=== PATIENT | female | born 1940 | race Caucasian/White ===

== ENCOUNTER → 2017-05-02 | Outpatient (CLI) | payer MEDICARE, BC ==
[~2017-05-02] MED LIST: ASPI-482 PO; BUPIVACAINE MPF 0.5% 10 ML VIAL for KCIC. IJ ONE; CONTRAST GIVEN MC PRN; GABA-586 PO; IOHEXOL 300 MG/ML 50 ML VIAL. IART ONE; IRBE300T3 PO; LIDOCAINE 1% Multi-Dose 20 ML VIAL. ID ONE; MELO-150 PO; METO25TA9 PO; VENL75CA6 PO; methylPREDNISolone ACETATE 40 MG/ML VIAL. INT ART ONE
--- NOTE | 2017-05-02 13:27 | KCIC ---
PROCEDURE Therapeutic right hip injection using fluoroscopic guidance. HISTORY Hip pain. Pain is chronic TECHNIQUE The procedure was explained to the patient as were potential risks, including infection, bleeding or allergic reaction. All questions were answered. Informed written and verbal consent was obtained. The hip was prepped and draped in the usual sterile manner. Following administration of local anesthetic, a 22-gauge spinal needle was advanced into the hip joint without difficulty, with care taken to avoid the vascular structures. Stylet was removed and following negative aspiration, a mixture of 4 cc Omnipaque-300, 2 cc (80 mg) Depo-Medrol, 4 cc 0.5% Marcaine and 4 cc 1% lidocaine were injected without difficulty. Fluoroscopy demonstrates uniform and satisfactory distribution of the injection through the hip. The needle was removed. There was good hemostasis at the injection site. The patient left in stable condition without immediate complication. The patient was given postprocedural instructions, instructed to contact us or the emergency room if there are any complications. A single spot image was obtained. FLUOROSCOPY TIME: 43 seconds Electronically signed by: Manuel Aguiar MD (05/02/2017 1:24 PM)
== END | disposition home or self-care (01) ==
LOC: KCIC 11:02
PROVIDERS: ATTEND Family Medicine
DX: M25.551 Pain in right hip (principal); G89.29 Other chronic pain
CPT/HCPCS: 20610; 77002; J1030; Q9967

== ENCOUNTER → 2017-06-04 | Outpatient (CLI) | payer MEDICARE, BC ==
[~2017-06-04] MED LIST changes: -BUPIVACAINE MPF 0.5% 10 ML VIAL for KCIC. IJ ONE; -CONTRAST GIVEN MC PRN; -IOHEXOL 300 MG/ML 50 ML VIAL. IART ONE; -LIDOCAINE 1% Multi-Dose 20 ML VIAL. ID ONE; -MELO-150 PO; +MELO15TA23 PO; -methylPREDNISolone ACETATE 40 MG/ML VIAL. INT ART ONE
--- NOTE | 2017-06-04 17:02 | KCIC ---
Examination: MRI of the right hip without contrast HISTORY: History of right hip pain COMPARISON: None available TECHNIQUE: Multiplanar, multisequence MR imaging of the right hip was performed without contrast. Findings: The right femoral head is within the acetabulum. There is moderate to severe joint space loss identified in the right hip joint with deep fissuring of the cartilage. Small hip joint effusion is identified. There is increased signal identified in the anterosuperior labrum likely tear of the labrum with a multiloculated cystic structure measuring 4.3 cm in AP dimension and 1.1 cm in transverse dimension likely large paralabral cyst extending from anterior to posterior superior to the labrum. The attachment of the hamstring tendons to the ischial tuberosity grossly appears intact. The attachment of the iliopsoas tendon to a lesser trochanter grossly appears intact. The attachment of the gluteal tendons to the greater trochanter grossly appears intact. The visualized bowel appears unremarkable. Mild trabecular edema identified in the lateral femoral head probably bone marrow reactive changes or due to degeneration. IMPRESSION: 1. Tear of the anterosuperior labrum with a large paralabral cyst. 2. Moderate to severe degenerative changes right hip joint with mild trabecular edema in the lateral femoral head. 3. Deep fissuring of cartilage identified in the right hip joint likely secondary to degeneration. Electronically signed by: Navin Chauhan MD (06/04/2017 4:59 PM) [id number]
== END | disposition home or self-care (01) ==
LOC: KCIC MRI 15:58
PROVIDERS: ATTEND Orthopaedic Surgery
DX: M16.11 Unilateral primary osteoarthritis, right hip (principal)
CPT/HCPCS: 73721

== ENCOUNTER → 2017-07-22 | Outpatient (CLI) | payer MEDICARE, BC ==
[~2017-07-22] MED LIST changes: +LANS30CA PO; +RANI150T2 PO
[2017-07-22 08:48] LABS: BASO % 1 % (0-3); EOS % 5 % (0-3); HEMATOCRIT 36.7 % (36.0-47.0); LYMPH # 1.5 x10^3/uL (1.0-4.8); LYMPH % 35 % (24-48); MEAN CORPUSCULAR HEMOGLOBIN 26 pg (25-35); MEAN CORPUSCULAR HGB CONC 33 g/dL (31-37); MEAN CORPUSCULAR VOLUME 80 fL (79-100); MONO % 9 % (0-9); NEUT % 51 % (31-73); PLATELET COUNT 239 x10^3/uL (140-400); RED BLOOD COUNT 4.59 x10^6/uL (3.50-5.40); RED CELL DISTRIBUTION WIDTH 16.5 % (11.5-14.5); WHITE BLOOD COUNT 4.2 x10^3/uL (4.0-11.0)
[2017-07-22 08:57] LABS: INR 1.1 (0.8-1.1); PROTHROMBIN TIME PATIENT 13.5 SEC (11.7-14.0)
[2017-07-22 09:13] LABS: ALBUMIN 3.5 g/dL (3.4-5.0); CALCIUM 8.7 mg/dL (8.5-10.1); CREATININE 0.6 mg/dL (0.6-1.0); GFR 96.9
[2017-07-22 11:16] LABS: BILIRUBIN,URINE NEGATIVE (NEG); GLUCOSE,URINE NEGATIVE (NEG); NITRITE,URINE NEGATIVE (NEG); PROTEIN,URINE NEGATIVE (NEG-TRACE); UROBILINOGEN,URINE 0.2 mg/dL (0.2 mg/dL)
[2017-07-22 11:26] LABS: SQUAMOUS EPITHELIAL CELL,UR OCC /LPF
[2017-07-22 11:27] LABS: BACTERIA,URINE FEW /HPF (0-FEW)
--- NOTE | 2017-07-22 13:03 | RAD ---
Exam performed: 2 views of the chest. Indication: HXHYPERTENSION-PREOP EVAL FOR JOINT REPLACEMENT Date of Service:07/22/2017 9:51 AM . Comparison : None available. Findings: PA and lateral radiographs of the chest reveal a normal cardiomediastinal contour. Ectatic tortuous aorta. Calcified nodule in the right lung base. The lungs are clear. No pleural fluid is seen. The visualized osseous structures are unremarkable. Impression: No acute findings seen in the 2 views chest
== END | disposition home or self-care (01) ==
LOC: SURGPAT 12:48
PROVIDERS: ATTEND Orthopaedic Surgery
DX: Z01.818 Encounter for other preprocedural examination (principal); M16.11 Unilateral primary osteoarthritis, right hip; Z96.641 Presence of right artificial hip joint
CPT/HCPCS: 36415; 71020; 80048; 81001; 82040; 85025; 85610; 85651; 85730; 87086; 87641

== ENCOUNTER 2017-08-06 06:04 | Inpatient (IN) | payer MEDICARE, BC ==
[~2017-08-06] VITALS: Ht 152.4 cm; Wt 59.9 kg
[2017-08-06] VITALS (14 sets, daily range): BP systolic 78–122; BP diastolic 40–69
[~2017-08-06 06:04] MED LIST changes: +ACETAMINOPHEN 500 MG TABLET PO PRN; +CLINDAMYCIN 600MG PREMIX 50 ML IV PRN; +CLINDAMYCIN PREMIX 600 MG/50 ML BAG. IV ONE; +METO-239 PO; -METO25TA9 PO; +MORPHINE SULFATE 5 MG, KETOROLAC 30 MG, ROPIVacaine 0.5% PF 60 ML, EPINEPHrine 0.5 MG i... INT ART ONE; +TRANEXAMIC ACID 1,000 MG in IV NS 50ML -- 1ST BAG INJ ONE
[2017-08-06] MEDS ORDERED: LIDOCAINE 1% 1 ML SYRINGE. ID PRN (07:00)
[2017-08-06] MEDS ORDERED: IV RINGERS,LACTATED 1000ML 1,000 ML IV SCH (07:00)
[2017-08-06] MEDS ORDERED: ONDANSETRON PF 4 MG/2 ML VIAL. IV PRN (07:00)
[2017-08-06] MEDS ORDERED: PROCHLORPERAZINE 10 MG/2 ML VIAL. IV PRN ×2 (07:00→07:30)
[2017-08-06] MEDS ORDERED: MORPHINE SULFATE 2 MG/ML DISP.SYRIN. IV PRN ×2 (07:00→07:30)
[2017-08-06] MEDS: MELOXICAM 7.5 MG TABLET PO PRN ×2 (07:02→13:58)
[2017-08-06 07:12] LABS: INR 1.1 (0.8-1.1); PROTHROMBIN TIME PATIENT 13.7 SEC (11.7-14.0)
[2017-08-06] MEDS ORDERED: fentaNYL PF VIAL 100 MCG/2 ML VIAL ONE (07:19)
[2017-08-06] MEDS ORDERED: DESFLURANE > 120 MINUTES IH ONE (07:19)
[2017-08-06] MEDS ORDERED: PROPOFOL 20 ML IV ONE (07:19)
[2017-08-06] MEDS ORDERED: ONDANSETRON PF 4 MG/2 ML VIAL. ONE (07:19)
[2017-08-06] MEDS ORDERED: PHENYLEPHRINE in 0.9% NACL PF 1 MG/10 ML DISP.SYRIN. IV ONE (07:19)
[2017-08-06] MEDS ORDERED: VECURONIUM BOLUS 10 MG VIAL. IV ONE (07:19)
[2017-08-06] MEDS ORDERED: LIDOCAINE 2% PF Vial for OR 5 ML VIAL. ONE (07:19)
[2017-08-06] MEDS ORDERED: DEXAMETHASONE SOD PHOS 20 MG/5 ML VIAL. ONE (07:19)
[2017-08-06] MEDS ORDERED: 0.9 % SODIUM CHLORIDE 50 ML VIAL. IJ ONE (07:22)
[2017-08-06] MEDS: IV DEXTROSE 5 %-0.45 % NACL 1,000 ML IV SCH ×2 (07:25→17:25)
[2017-08-06] MEDS ORDERED: MORPHINE SULFATE 4 MG/ML DISP.SYRIN. IV PRN (07:30)
[2017-08-06] MEDS ORDERED: ZOLPIDEM 5 MG TABLET. PO PRN (07:30)
[2017-08-06] MEDS ORDERED: CALCIUM CARBONATE 500 MG TAB.CHEW PO PRN (07:30)
[2017-08-06] MEDS ORDERED: oxyCODONE/APAP 7.5/325 1 TAB TABLET PO PRN (07:30)
[2017-08-06] MEDS ORDERED: traMADol 50 MG TABLET PO PRN ×2 (07:30)
[2017-08-06] MEDS ORDERED: fentaNYL PF VIAL 100 MCG/2 ML VIAL IV PRN ×4 (07:30→11:30)
[2017-08-06] MEDS ORDERED: diphenhydrAMINE 50 MG/ML VIAL IV PRN (07:30)
[2017-08-06] MEDS ORDERED: 0.9 % SODIUM CHLORIDE 10 ML DISP.SYRIN. IV PRN (07:30)
[2017-08-06] MEDS ORDERED: DEXTROSE 50% 25 GM / 50ML DISP.SYRIN. IV PRN (07:30)
[2017-08-06] MEDS: FERROUS SULFATE 325 MG TABLET. PO SCH ×2 (08:00→16:56)
[2017-08-06] MEDS ORDERED: TRANEXAMIC ACID 1,000 MG in IV NS 50ML -- 2ND BAG INJ ONE (08:00)
[2017-08-06] MEDS ORDERED: NEOSTIGMINE 10 MG/10 ML VIAL. ONE (09:13)
[2017-08-06] MEDS ORDERED: GLYCOPYRROLATE 1 MG/5 ML VIAL. ONE (09:13)
[2017-08-06] MEDS: HYDROmorphone 2 MG/ML VIAL IV PRN ×4 (11:05→11:37)
[2017-08-06] MEDS ORDERED: INSULIN ASPART 100 UNIT/ML 10ML VIAL. SQ ONE ×2 (11:07→13:30)
[2017-08-06] MEDS: PANTOPRAZOLE 40 MG TABLET.DR. PO SCH (11:30)
[2017-08-06] MEDS ORDERED: INSULIN ASPART 300 UNITS/3 ML INSULN.PEN SQ SCH (11:30)
--- NOTE | 2017-08-06 11:44 | RAD ---
Portable pelvis, 08/06/2017: History: Postop evaluation A right hip prosthesis has been placed. It appears to be in satisfactory position. A surgical drain overlie the operative site. Surgical clips are projected over the lower lumbar region. There is no evidence of a retained surgical instrument, needle or radiopaque sponge. IMPRESSION: No significant postoperative abnormality is detected.
[2017-08-06] MEDS: KETOROLAC TROMETHAMINE 10 MG TABLET PO SCH ×2 (12:00→18:05)
[2017-08-06] MEDS ORDERED: ALBUMIN HUMAN 5% 500 ML IV ONE (12:30)
[2017-08-06 12:52] LABS: HEMATOCRIT 32.3 % (36.0-47.0); HEMOGLOBIN 10.6 g/dL (12.0-15.5); RED BLOOD COUNT 3.84 x10^6/uL (3.50-5.40); RED CELL DISTRIBUTION WIDTH 16.6 % (11.5-14.5); WHITE BLOOD COUNT 10.9 x10^3/uL (4.0-11.0)
[2017-08-06] MEDS: VENLAFAXINE XR 37.5 MG CAP.ER.24H. PO SCH (13:00)
[2017-08-06] MEDS: LOSARTAN POTASSIUM 50 MG TABLET. PO SCH (13:00)
[2017-08-06] MEDS: MULTIVITAMIN with MINERAL TABLET. PO SCH (13:00)
[2017-08-06] MEDS: METOPROLOL SUCC 24HR ER 25 MG TAB.ER.24H. PO SCH (13:00)
[2017-08-06] MEDS: GABAPENTIN 300 MG CAPSULE. PO SCH ×2 (14:00→21:00)
[2017-08-06] MEDS: CLINDAMYCIN 600MG PREMIX 50 ML IV SCH ×2 (14:20→19:22)
--- NOTE | 2017-08-06 15:25 | PDOC4 ---
Operative Note Operative Note Date of surgery: 08/06/2017 Preoperative diagnosis: ACL and PCL tears status post knee dislocation with previous LCL reconstruction and peroneal nerve exploration and neuro lysis Postoperative diagnosis same Procedure: Right knee arthroscopy with allograft posterior cruciate ligament and anterior cruciate ligament reconstruction Surgeon: Chacho Assist: Darlyn Anesthesia: Gen. endotracheal Estimated blood loss less than 50 mL Tourniquet time: 2 hours 15 minutes Complications: None Operative indications: Patient is a 44-year-old female that sustained a knee dislocation with multiple ligament instability and a peroneal nerve motor deficit at the time of injury. She underwent subsequent lateral collateral ligament and posterior lateral corner reconstruction with exploration and neuro lysis of the peroneal nerve and continues to have sensory function distally for the peroneal nerve but no motor function has returned as of yet. I went over with her the strategy of anterior and posterior cruciate ligament reconstruction risks benefits postoperative course possible infection recurrent instability nerve or blood vessel damage medical or other anesthetic consultations among others. All her questions were answered consent was obtained and she agrees to proceed with operative evaluation and treatment Operative text: Patient was identified procedure verified patient placed in the supine position on the operating table. After adequate amounts of general endotracheal anesthesia were administered the right lower extremity was examined under anesthesia and found to have full range of motion and gross instability on anterior posterior drawer Lackman testing. The right lower extremity was placed with a thigh tourniquet and prepped and draped in standard sterile fashion. After timeout was performed patient procedure again identified and verified, the right lower extremity was exsanguinated by Esmarch bandage tourniquet inflated to 300 mmHg a lateral portal was established a medial portal established using spinal needle localization and the knee joint was systematically examined medial and lateral menisci were probed and found to be intact patellofemoral tracking was excellent with no significant chondromalacia noted in either of the 3 compartments of the knee ACL and PCL were clearly torn remnants were removed tibial tunnel of the PCL was first drilled anatomically and a Radnor-Cal reamer used to smooth the superior aspect of the tunnel. The Achilles autograft was sized at a size 9-1/2 with a 10 mm bone plug design for the femoral side. Accordingly a 9.5 mm tibial tunnel was drilled in anatomic position and a 10 mm tunnel was drilled 3 mm off the anterior cartilage surface at the anatomic PCL femoral insertion. The Radnor rasp was again used to smooth the tunnel edges bony fragments were removed from the joint and the PCL graft was placed and fixed on the femoral side with a 9 x 30 mm bioabsorbable interference screw with excellent fit and stability noted graft placement intra- articular was noted to be excellent the graft was tensioned and taken through flexion and extension cycles to eliminate any creep and tensioned at 70 of knee flexion with excellent pentecostal of the tibiofemoral step-off. Fixation carried out with a 10 x 30 mm bioabsorbable interference screw from [employer] attention was then turned to ACL reconstruction where a 9 mm allograft was prepared and whip stitched on the back table. ACL tibial tunnel was drilled at its anatomic insertion point ensuring an adequate bone bridge between the PCL tunnel. Femoral tunnel was drilled the 2 o'clock position with a 6 mm guide and adequate but minimal back wall was obtained drilling was carried out approximately 236 mm depth and cortex was breached with the 4 mm Endobutton drill bit at approximately 44 mm. A 15 mm closed loop Endobutton was then selected to achieve 29 mm in the femoral tunnel. Tunnel edges were rasped bone fragments were removed and the ACL allograft was brought into the tunnel Endobutton was flipped without difficulty the knee was taken through flexion and extension cycles to verify isometry and placement no impingement noted and the ACL was tensioned in full extension and fixation carried out with a 9 x 30 mm interference screw. Backup fixation by sewing the ACL and PCL grafts together. Excellent stability was returned to the knee thorough irrigation carried out normal saline solution incisions over the medial aspect of the tibia and femur were closed with 2-0 Vicryl suture portals closed with nylon suture sterile dressings were applied patient was placed in a hinged knee brace locked in extension and returned to recovery room in stable condition toes were noted be warm pink find deflation of the tourniquet. Please note that Valarie roy was present for the procedure assisted in the prepping draping graft preparation and closure SHYAM BOTELLO MD Aug 06, 2017 15:25
[2017-08-06] MEDS ORDERED: WARFARIN 7.5 MG TABLET. PO ONE (16:00)
--- NOTE | 2017-08-06 16:08 | PDOC4 ---
Operative Note Operative Note Date of operation: 08/06/2017 Preoperative diagnosis: Right hip DJD Postoperative diagnosis: Same Procedure: Right total hip arthroplasty anterior approach Surgeon: Chacho Assist: Darlyn Anesthesia: Gen. endotracheal Estimated blood loss: 975 mL Specimens femoral head to pathology Intraoperative transfusion 2 units packed red blood cells Complications: None Operative indications: Patient is a 77-year-old female with ongoing right hip pain unresponsive to nonoperative management and severe degenerative joint changes on x-ray. I gone over with her risks benefits postoperative course of possible operative treatment including the possibility of leg length discrepancy nerve or blood vessel damage continued pain premature wear or loosening instability medical or other anesthetic consultations among others. All her questions were answered consent was obtained and she agrees to proceed with operative evaluation and treatment Operative text: Patient was identified procedure verified patient placed in the supine position on the [place] table and after adequate amounts of general tracheal anesthesia were administered all bony prominences were well-padded both legs were placed in traction boots and the right hip was prepped and draped in standard sterile fashion. After timeout was performed patient procedure identified and verified, leg lengths were first assessed preoperatively under fluoroscopic images. An incision was made just distal to the anterior superior iliac spine along the tensor fascia ana muscle fascia was divided tensor fascia ana was brought laterally and coagulation carried out with the aqua Mantis device coagulating the circumflex vessels. Hip capsule was visualized and split in a T fashion femoral neck cut was made and a napkin ring configuration which was removed femoral head was removed measured at approximately a size 45 mm diameter and was sent for pathologic evaluation labrum and foveal contents were excised acetabulum was exposed well and reaming carried out up to a size 46 a 48 mm [employer] are 3 acetabular liner was placed in anatomic position and a single superior screw used to fixation a 0 cross-linked polyethylene liner was then impacted into place releases were carried rout around the femoral neck preserving the external rotators and the leg was brought into extension external rotation and adduction the femur was lateralized canal was located with a rattail rasp and successive size broaching carried out up to a size 2 which provided excellent stable fit trialing was carried out with a 0 and +4 head with the 0 being slightly short and some light laxity a size +4 divided excellent stability slightly lengthened her leg length offset was re-created without difficulty. Trial components were removed thorough irrigation carried out normal saline solution and a size 2's SMF sticktight coated stem femoral component was tapped into place seated very well up +4 32 mm outside diameter cobalt chromium femoral head was tapped in place and reduced excellent stability with full range of motion. Thorough irrigation carried out normal saline solution the capsule and surrounding tissues were infused with pain catheter mixture pain catheters Hemovac drain were placed fascia was closed with #1 PDS barbed suture subcutaneous closure with buried Vicryl suture subcuticular Monocryl sterile dressings were applied patient was returned recovery room in stable condition having tolerated procedure well. Valarie valiente assist was present for the prepping draping assisting in the retraction and skin closure SHYAM BOTELLO MD Aug 06, 2017 16:08
[2017-08-06] MEDS: KETOROLAC 30 MG, BUPIVACAINE MPF 0.25% 20 ML, EPINEPHrine 0.5 MG in TOTAL VOLUME SYRING... INT ART SCH (16:55)
[2017-08-06] MEDS: oxyCODONE/APAP 5/325 1 TAB TABLET PO PRN (19:22)
[2017-08-06] MEDS: FAMOTIDINE 20 MG TABLET. PO SCH (21:00)
[2017-08-07] MEDS: CLINDAMYCIN 600MG PREMIX 50 ML IV SCH (02:00)
[2017-08-07] MEDS: IV DEXTROSE 5 %-0.45 % NACL 1,000 ML IV SCH ×2 (03:25→13:25)
[2017-08-07 03:30] VITALS: BP 103/62
[2017-08-07 04:58] LABS: HEMOGLOBIN 9.2 g/dL (12.0-15.5)
[2017-08-07 05:06] LABS: INR 1.6 (0.8-1.1); PROTHROMBIN TIME PATIENT 18.3 SEC (11.7-14.0)
--- NOTE | 2017-08-07 05:30 | ACF ---
Admission Forms Criteria PAIN MANAGEMENT GR Clinical Indications for Admission to Inpatient Care (Place 'X' for any and all applicable criteria): Hospital admission is needed for appropriate care of the patient because of 1 or more of the following are present (1)(2)(3)(4)(5): [X]I. Severe pain requiring acute inpatient management as indicated by 1 or more of the following (2)(5)(10): [X]a) Continuous or frequent (eg, every 2 to 4 hours) parenteral analgesics required [A] [ ]b) Necessity (ie, alternative approaches not effective) for analgesic regimen that can only be performed or initiated in inpatient setting [ ]II. Pain causing debilitation to the point of inability to function or be supported at any other level of care [ ]III. Severe side effects from pain medications as indicated by ANY ONE of the following (12)(13)(14)(15): [ ]a) Uncontrollable seizures [ ]b) Cardiac arrhythmias of immediate concern [ ]c) Dehydration that is severe or persistent [ ]d) Vomiting that is severe or persistent [ ]e) Altered mental status that is severe or persistent [ ]f) Obstipation with inadequate GI function to maintain nutrition The original [employer] content created by [employer] has been revised. The portions of the content which have been revised are identified through the use of italic text or in bold, and [employer] has neither reviewed nor approved the modified material. All other unmodified content is copyright [employer]. Please see references footnoted in the original [employer] edition 2016 Admission Criteria Met?: Yes BAKARI MICHAEL Aug 07, 2017 05:30
[2017-08-07] MEDS: KETOROLAC 30 MG, BUPIVACAINE MPF 0.25% 20 ML, EPINEPHrine 0.5 MG in TOTAL VOLUME SYRING... INT ART SCH (05:35)
[2017-08-07] MEDS: KETOROLAC TROMETHAMINE 10 MG TABLET PO SCH ×5 (05:44→20:31)
[2017-08-07] MEDS ORDERED: MAGNESIUM HYDROXIDE 2,400 MG/30 ML ORAL.SUSP. PO PRN (06:00)
[2017-08-07] MEDS: PANTOPRAZOLE 40 MG TABLET.DR. PO SCH (06:44)
[2017-08-07] MEDS: oxyCODONE/APAP 5/325 1 TAB TABLET PO PRN ×2 (06:45→09:57)
[2017-08-07 07:23] VITALS: BP 115/73
[2017-08-07] MEDS: METOPROLOL SUCC 24HR ER 25 MG TAB.ER.24H. PO SCH (09:00)
[2017-08-07] MEDS: LOSARTAN POTASSIUM 50 MG TABLET. PO SCH (09:00)
[2017-08-07] MEDS: MULTIVITAMIN with MINERAL TABLET. PO SCH (09:14)
[2017-08-07] MEDS: ASPIRIN ENTERIC COATED 81 MG TABLET.DR. PO SCH (09:14)
[2017-08-07] MEDS: FERROUS SULFATE 325 MG TABLET. PO SCH ×2 (09:14→17:19)
[2017-08-07] MEDS: SENNOSIDES/DOCUSATE 8.6/50MG TABLET. PO SCH (09:15)
[2017-08-07] MEDS: VENLAFAXINE XR 37.5 MG CAP.ER.24H. PO SCH (09:15)
[2017-08-07] MEDS: GABAPENTIN 300 MG CAPSULE. PO SCH ×3 (09:15→20:26)
[2017-08-07 11:00] VITALS: BP 109/62
[2017-08-07] MEDS ORDERED: BISACODYL 10 MG SUPP.RECT. PR PRN (16:00)
[2017-08-07] MEDS ORDERED: WARFARIN 3 MG TABLET. PO ONE (16:00)
[2017-08-07 19:00] VITALS: BP 117/69
--- NOTE | 2017-08-07 20:11 | PDOC ---
PROGRESS NOTES Subjective Subjective Problems overnight: Pain well controlled mildly sore right hip Objective Vital Signs Vital Signs Date Time Temp Pulse Resp B/P (MAP) Pulse Ox O2 Delivery O2 Flow Rate FiO2 08/07/17 19:00 98.7 89 18 117/69 (85) 93 98.7 08/07/17 11:00 Nasal Cannula 2.0 Physical Exam Incision clean dry and intact leg lengths clinically equal distal neurovascular status intact Labs Laboratory Tests Test 08/06/17 06:15 08/06/17 06:50 08/06/17 10:46 08/06/17 11:47 Prothrombin Time 13.7 SEC (11.7-14.0) Prothromb Time International Ratio 1.1 (0.8-1.1) Activated Partial Thromboplast Time 29 SEC (24-38) Glucose (Fingerstick) 112 mg/dL (70-99) 183 mg/dL (70-99) 156 mg/dL (70-99) Test 08/06/17 12:35 08/07/17 04:27 08/07/17 06:41 White Blood Count 10.9 x10^3/uL (4.0-11.0) Red Blood Count 3.84 x10^6/uL (3.50-5.40) Hemoglobin 10.6 g/dL (12.0-15.5) 9.2 g/dL (12.0-15.5) Hematocrit 32.3 % (36.0-47.0) 27.0 % (36.0-47.0) Mean Corpuscular Volume 84 fL (79-100) Mean Corpuscular Hemoglobin 28 pg (25-35) Mean Corpuscular Hemoglobin Concent 33 g/dL (31-37) 34 g/dL (31-37) Red Cell Distribution Width 16.6 % (11.5-14.5) Platelet Count 161 x10^3/uL (140-400) Prothrombin Time 18.3 SEC (11.7-14.0) Prothromb Time International Ratio 1.6 (0.8-1.1) Glucose (Fingerstick) 115 mg/dL (70-99) Laboratory Tests Test 08/07/17 04:27 08/07/17 06:41 Hemoglobin 9.2 g/dL (12.0-15.5) Hematocrit 27.0 % (36.0-47.0) Mean Corpuscular Hemoglobin Concent 34 g/dL (31-37) Prothrombin Time 18.3 SEC (11.7-14.0) Prothromb Time International Ratio 1.6 (0.8-1.1) Glucose (Fingerstick) 115 mg/dL (70-99) Imaging X-ray show excellent alignment total hip arthroplasty with good offset and leg length measurement Assessment Assessment POD# [1], S/P [right total hip arthroplasty] Problems: Plan Plan of Care Mobilize weightbearing as tolerated No hip precautions necessary Coumadin anticoagulation Hemoglobin stable at 9.2 asymptomatic SHYAM BOTELLO MD Aug 07, 2017 20:11
[2017-08-07] MEDS: FAMOTIDINE 20 MG TABLET. PO SCH (20:26)
[2017-08-08] MEDS: KETOROLAC TROMETHAMINE 10 MG TABLET PO SCH ×4 (01:18→17:11)
[2017-08-08 05:31] LABS: HEMATOCRIT 25.1 % (36.0-47.0); HEMOGLOBIN 8.7 g/dL (12.0-15.5)
[2017-08-08 05:57] LABS: INR 2.4 (0.8-1.1); PROTHROMBIN TIME PATIENT 24.8 SEC (11.7-14.0)
[2017-08-08 06:00] VITALS: BP 133/81
[2017-08-08] MEDS: ACETAMINOPHEN 325 MG TABLET. PO PRN ×2 (06:33→20:36)
[2017-08-08] MEDS: PANTOPRAZOLE 40 MG TABLET.DR. PO SCH (06:33)
[2017-08-08] MEDS: FERROUS SULFATE 325 MG TABLET. PO SCH ×2 (08:12→17:11)
[2017-08-08] MEDS: METOPROLOL SUCC 24HR ER 25 MG TAB.ER.24H. PO SCH (08:12)
[2017-08-08] MEDS: MULTIVITAMIN with MINERAL TABLET. PO SCH (08:12)
[2017-08-08] MEDS: ASPIRIN ENTERIC COATED 81 MG TABLET.DR. PO SCH (08:12)
[2017-08-08] MEDS: VENLAFAXINE XR 37.5 MG CAP.ER.24H. PO SCH (08:12)
[2017-08-08] MEDS: LOSARTAN POTASSIUM 50 MG TABLET. PO SCH (08:13)
[2017-08-08] MEDS: SENNOSIDES/DOCUSATE 8.6/50MG TABLET. PO SCH (08:13)
[2017-08-08] MEDS: GABAPENTIN 300 MG CAPSULE. PO SCH (08:15)
--- NOTE | 2017-08-08 10:41 | PDOC ---
ORTHO PROGRESS NOTES Subjective Patient reports that she is doing well. Pain controlled. No numbness or tingling. Tolerating diet. Denies chest pain or shortness of breath. Anticipates DC tomorrow home with outpatient therapy Post-op Day: 2 (Right total hip arthroplasty) Vitals Vital Signs Date Time Temp Pulse Resp B/P (MAP) Pulse Ox O2 Delivery O2 Flow Rate FiO2 08/08/17 08:13 99 133/81 08/08/17 06:00 100.7 18 92 100.7 08/07/17 20:23 Room Air 08/07/17 11:00 2.0 Labs Laboratory Tests Test 08/06/17 10:46 08/06/17 11:47 08/06/17 12:35 08/07/17 04:27 Glucose (Fingerstick) 183 mg/dL (70-99) 156 mg/dL (70-99) White Blood Count 10.9 x10^3/uL (4.0-11.0) Red Blood Count 3.84 x10^6/uL (3.50-5.40) Hemoglobin 10.6 g/dL (12.0-15.5) 9.2 g/dL (12.0-15.5) Hematocrit 32.3 % (36.0-47.0) 27.0 % (36.0-47.0) Mean Corpuscular Volume 84 fL (79-100) Mean Corpuscular Hemoglobin 28 pg (25-35) Mean Corpuscular Hemoglobin Concent 33 g/dL (31-37) 34 g/dL (31-37) Red Cell Distribution Width 16.6 % (11.5-14.5) Platelet Count 161 x10^3/uL (140-400) Prothrombin Time 18.3 SEC (11.7-14.0) Prothromb Time International Ratio 1.6 (0.8-1.1) Test 08/07/17 06:41 08/08/17 04:50 08/08/17 07:24 Glucose (Fingerstick) 115 mg/dL (70-99) 110 mg/dL (70-99) Hemoglobin 8.7 g/dL (12.0-15.5) Hematocrit 25.1 % (36.0-47.0) Mean Corpuscular Hemoglobin Concent 35 g/dL (31-37) Prothrombin Time 24.8 SEC (11.7-14.0) Prothromb Time International Ratio 2.4 (0.8-1.1) Laboratory Tests Test 08/08/17 04:50 08/08/17 07:24 Hemoglobin 8.7 g/dL (12.0-15.5) Hematocrit 25.1 % (36.0-47.0) Mean Corpuscular Hemoglobin Concent 35 g/dL (31-37) Prothrombin Time 24.8 SEC (11.7-14.0) Prothromb Time International Ratio 2.4 (0.8-1.1) Glucose (Fingerstick) 110 mg/dL (70-99) Notes Patient is awake and alert sitting up in chair. Breathing unlabored, no acute distress. Incision covered with dressing, slightly saturated with serosanguineous. Mild edema right hip. Neurovascular intact right lower extremity Problems: (1) Degenerative joint disease of right hip Assessment and Plan Continue PT OT, weightbearing as tolerated Anticoagulation per pharmacy Pain controlled Anticipate discharge tomorrow with outpatient therapy Problem Qualifiers (1) Degenerative joint disease of right hip: Osteoarthritis type: primary Qualified Codes: M16.11 - Unilateral primary osteoarthritis, right hip TREY LIN APRN Aug 08, 2017 10:41
--- NOTE | 2017-08-08 15:47 | PATHOLOGY ---
PATHOLOGY REPORT * * * * * * * * FINAL DIAGNOSIS: Femoral head, "right hip bone and tissue": - Degeneration of cartilage consistent with degenerative joint disease. (SHA:mgmaria alejandra; 08/08/2017) REPORT ELECTRONICALLY SIGNED BY: Vincenzo Joseph M.D. DATE/TIME: 08/08/2017 15:42 * * * * * * * * GROSS PATHOLOGY: Received in formalin labeled "Kevin Cooper, right hip bone and tissue," is a femoral head measuring 4.4 x 4.4 x 3.8 cm in greatest dimensions. The articular surface is smooth to granular and pale michael to light brown. Sectioning the bone reveals pale yellow cut surfaces. Caddy tissue is submitted in cassette A1, following decalcification. (DAC; 08/07/2017) INITIAL CPT CODE(S): A; 71186, 93376 Professional services [place] [facility] [place] [address] Technical services performed by [facility] at [address] [place] [address], [facility] [address] [address]. SPECIMEN(S) RECEIVED: A.Right hip bone and tissue CLINICAL HISTORY: OA PATIENT: KEVIN COOPER /AGE: 605/02/1940 (Age: 77) PATIENT #: [id number] ALT CASE #: SPECIMEN COLLECTION DATE: 08/06/2017 SPECIMEN RECEIVED DATE: 08/06/2017 [facility] - [address] [place] [address] - PHONE: [phone] * * * END OF REPORT * * *
[2017-08-08 18:08] VITALS: BP 149/81
[2017-08-08] MEDS: FAMOTIDINE 20 MG TABLET. PO SCH (20:34)
[2017-08-08] MEDS ORDERED: GABAPENTIN 300 MG CAPSULE. PO SCH (21:00)
[2017-08-09] MEDS: KETOROLAC TROMETHAMINE 10 MG TABLET PO SCH ×3 (06:08→11:49)
[2017-08-09] MEDS: PANTOPRAZOLE 40 MG TABLET.DR. PO SCH (06:08)
[2017-08-09] MEDS: ACETAMINOPHEN 325 MG TABLET. PO PRN (06:14)
[2017-08-09 06:31] VITALS: BP 142/87
[2017-08-09 06:50] LABS: INR 1.7 (0.8-1.1); PROTHROMBIN TIME PATIENT 18.5 SEC (11.7-14.0)
[2017-08-09 06:51] LABS: HEMATOCRIT 26.3 % (36.0-47.0); HEMOGLOBIN 8.7 g/dL (12.0-15.5)
[2017-08-09] MEDS: MULTIVITAMIN with MINERAL TABLET. PO SCH (08:42)
[2017-08-09] MEDS: VENLAFAXINE XR 37.5 MG CAP.ER.24H. PO SCH (08:42)
[2017-08-09] MEDS: FERROUS SULFATE 325 MG TABLET. PO SCH (08:42)
[2017-08-09] MEDS: ASPIRIN ENTERIC COATED 81 MG TABLET.DR. PO SCH (08:42)
[2017-08-09] MEDS: SENNOSIDES/DOCUSATE 8.6/50MG TABLET. PO SCH (08:42)
[2017-08-09] MEDS: METOPROLOL SUCC 24HR ER 25 MG TAB.ER.24H. PO SCH (08:43)
[2017-08-09] MEDS: LOSARTAN POTASSIUM 50 MG TABLET. PO SCH (08:44)
[2017-08-09 11:35] VITALS: BP 133/53
[2017-08-09] MEDS ORDERED: WARFARIN 4 MG TABLET. PO ONE (12:00)
[2017-08-09] MEDS ORDERED: KETO10TA PO (12:09)
[2017-08-09] MEDS ORDERED: WARF4TAB7 PO (12:10)
[2017-08-09] MEDS ORDERED: FERR-26 PO (12:10)
--- NOTE | 2017-08-12 20:38 | DS ---
DATE OF DISCHARGE: 08/09/2017 PRINCIPAL DIAGNOSIS: Degenerative joint disease of right hip. PROCEDURE: Include right total hip arthroplasty, anterior approach. DISCHARGE INSTRUCTIONS: Include weightbearing as tolerated. No hip precautions necessary. Follow up with Dr. Flor in 2 weeks. DISPOSITION: Home with home health. DISPOSITION MEDICATIONS: Include Coumadin as directed by anticoagulation clinic, Toradol 10 mg q. 6 hours p.r.n. for a limited time, to include less than 1 week, discontinue if any stomach upset, black tarry stools or other constitutional symptoms occur. Other home medications are renewed. BRIEF DESCRIPTION OF HOSPITAL COURSE: The patient underwent uncomplicated right total hip arthroplasty aside from some significant blood loss ____. She was transfused 2 units of packed red blood cells in total and had a hemoglobin stable following that and got around well with physical therapy. She did have a couple of temperature spikes that really appeared perhaps atelectasis related as she was not significantly using her incentive spirometry after getting up and around. No urinary tract symptoms or other causes of fever were noted and she was really asymptomatic otherwise and did well in terms of negotiating transfers and activities with physical therapy and was discharged home in stable condition. SHYAM FLOR MD DR: CHADWICK/darleen JOB#: [id number] / [id number]
== END 2017-08-09 15:15 | disposition home or self-care (01) | DRG 470 ==
LOC: OPSVCIP 06:04 → 4 SOUTHEST 13:14
PROVIDERS: ADMIT Orthopaedic Surgery; ATTEND Orthopaedic Surgery
PROC: 30233N1 Transfusion of Nonautologous Red Blood Cells into Peripheral Vein, Percutaneous Approach (ICD-10-PCS; 2017-08-06)
PROC: 0SR902Z Replacement of Right Hip Joint with Metal on Polyethylene Synthetic Substitute, Open Approach (ICD-10-PCS; principal; 2017-08-06 07:30)
DX: M16.11 Unilateral primary osteoarthritis, right hip (principal); I10 Essential (primary) hypertension; K21.9 Gastro-esophageal reflux disease without esophagitis; Z90.710 Acquired absence of both cervix and uterus; Z90.49 Acquired absence of other specified parts of digestive tract; Z79.899 Other long term (current) drug therapy; Z79.82 Long term (current) use of aspirin; Z88.5 Allergy status to narcotic agent; Z88.0 Allergy status to penicillin; Z88.2 Allergy status to sulfonamides
CPT/HCPCS: 36415; 72170; 76000; 82962; 85014; 85018; 85027; 85610; 85730; 86850; 86900; 86901; 86920; 88304; 88311; C1887; J0171; J0780; J1100; J1170; J1885; J2270; J2370; J2405; J2704; J2710; J2795; J3010; J3490; J7030; J7120; P9016; P9045; 97116; 97150; 97530; 97535; J2001

== ENCOUNTER → 2018-02-14 | Outpatient (CLI) | payer MEDICARE, BC | END | disposition home or self-care (01) | LOC: ECHO 14:07 | DX: G45.9 Transient cerebral ischemic attack, unspecified (principal) | CPT/HCPCS: 93306 ==

== ENCOUNTER → 2018-02-17 | Outpatient (CLI) | payer MEDICARE, BC | END | disposition home or self-care (01) | LOC: US 15:30 | DX: G45.9 Transient cerebral ischemic attack, unspecified (principal) | CPT/HCPCS: 93880 ==

== ENCOUNTER → 2021-01-12 | Outpatient (CLI) | payer MEDICARE, BC ==
[~2021-01-12] MED LIST changes: -ACETAMINOPHEN 500 MG TABLET PO PRN; +ALBU2.5V8 IH; +ATOR20TA58 PO; -CLINDAMYCIN 600MG PREMIX 50 ML IV PRN; -CLINDAMYCIN PREMIX 600 MG/50 ML BAG. IV ONE; +CLOP75TA PO; +FAMO40TA4 PO; +FERR325T14 PO; +FLUT16SP NS; -GABA-586 PO; +GABA300C18 PO; +IRBE300T23 PO; -IRBE300T3 PO; +KETO10TA PO; +MAGN250T10 PO; +METO-247 PO; -MORPHINE SULFATE 5 MG, KETOROLAC 30 MG, ROPIVacaine 0.5% PF 60 ML, EPINEPHrine 0.5 MG i... INT ART ONE; +MULT-47 PO; +MULT-647 PO; +TELM80TA PO; -TRANEXAMIC ACID 1,000 MG in IV NS 50ML -- 1ST BAG INJ ONE; +UBID50TA PO; +WARF4TAB64 PO
--- NOTE | 2021-01-12 11:35 | PDOC1 ---
INITIAL PAIN CONSULT DATE OF SERVICE: DOS: DATE: 01/12/21 TIME: 11:29 CHIEF COMPLAINT: Chief Complaint: Low back and left lower extremity pain HISTORY OF PRESENT ILLNESS: 80-year-old female presents history of pain low back left lower extremity for approximately 2 months without any specific injury or accident that she is aware of but getting worse with time and noted with walking standing changing position especially getting up from seated position and standing for more than 5 to 10 minutes. Patient reports has been using a cane to walk reports the pain is been waking her from sleep at night about every 3-4 hours does not affect her bowel bladder control but is affecting her walking ability. Patient reports that she had chiropractic treatment which was helpful but only very temporary initially about a month ago. Patient been taking Tylenol which helps to a mild extent as well but not every time she takes it. Patient reports pain in the low back rating the posterior gluteus posterior thigh on the left posterior calf on the left to the ankle described as shooting and radiating changes during the day worse with activity intermittent intensity aching and burning patient reports is better than it was 2 months ago but still significant and still there daily. Patient did have MRI scan lumbar spine showing at the L4-5 level eccentric disc bulge to the right with facet and ligamentum flavum hypertrophy but no canal stenosis right lateral recess narrowing mild to moderate right and mild left foraminal narrowing L5-S1 shows disc bulge and facet hypertrophy with disc bulge eccentric to the left with no canal stenosis but mild to moderate left foraminal narrowing. Patient reports no loss of motor function but significant fatigability of the left lower extremity with walking and standing. Patient rates her disability rating 0-10 10 being worst is a 7 with family home with possibilities and recreation 8 with social activity 9 with self-care and life support activities and 10 with occupational activity. PAST MEDICAL HISTORY: PMH: Hypertension, depression, TIAs, gastroesophageal reflux PREVIOUS SURGERIES: Past Surgical Hx: Total abdominal hysterectomy, kidney stent 1984, cholecystectomy, right total hip arthroplasty, right LASEK procedure CURRENT MEDICATIONS: Current Meds: Active Scripts Medications Dose Route/Sig Max Daily Dose Days Date Category Dose Instructions Atorvastatin Calcium 20 Mg Tablet 1 Tab PO DAILY 01/12/21 Reported Coq10 (Ubidecarenone) 50 Mg Tab.chew 50 Mg PO DAILY 01/12/21 Reported Clopidogrel (Clopidogrel Bisulfate) 75 Mg Tablet 1 Tab PO DAILY 01/12/21 Reported Metoprolol Succinate ( Xl ) (Metoprolol Succinate) 100 Mg Tab.er.24h 50 Mg PO DAILY 01/12/21 Reported Lansoprazole 30 Mg Capsule.dr 30 Mg PO DAILY 07/19/17 Reported LAST DOSE GIVEN: DATE:08/09/17 TIME:9:00 a.m. Aspir 81 (Aspirin) 81 Mg Tablet.dr 1 Tab PO DAILY 05/02/17 Reported LAST DOSE GIVEN: DATE:08/09/17 TIME:9:00 a.m. Gabapentin (Gabapentin) 300 Mg Capsule 300 Mg PO HS 05/02/17 Reported LAST DOSE GIVEN: DATE:08/08/17 TIME:9:00 p.m. ALLERGIES; Allergies: Coded Allergies: WANDA Inhibitors (Verified Allergy, Intermediate, 08/06/17) Penicillins (Verified Allergy, Intermediate, 08/06/17) Sulfa (Sulfonamide Antibiotics) (Verified Allergy, Intermediate, 08/06/17) meperidine (Verified Allergy, Intermediate, 08/06/17) FAMILY HISTORY: Family Hx: Diabetes and heart disease SOCIAL HISTORY: Social Hx: Patient drink alcohol or smoke or use any illegal illicit recreational drugs is single lives locally and is currently retired. REVIEW OF SYSTEMS: ROS: Positive for those items mentioned in history of present illness, all systems are reviewed, otherwise negative ,and are complete full and well-documented on patient's chart. PHYSICAL EXAM: VS: Blood pressure is 140/91 pulse 80 respirations 16 temperature 98.5 F height is 5 foot weight is 153 pounds PE: PHYSICAL EXAMINATION: GENERAL: The patient is awake, alert, oriented, appropriate, very pleasant dem eanor HEENT: Shows normocephalic, atraumatic. Extraocular movements are intact and symmetrical. Oral cavity: Mucous membranes moist and pink. Dentition is intact. NECK: Shows anterior throat supple without palpable lymphadenopathy noted. Swallow reflex symmetrical. CHEST: Shows normal on inspection. Breath sounds are clear bilaterally, no rales rhonchi wheezes auscultated. HEART: Shows S1, S2 clear. No murmurs auscultated. ABDOMEN: Soft, nontender, nondistended, obese. No palpable organomegaly is not ed. No rebound or guarding demonstrated. BACK: Shows spine grossly in the midline. Normal-appearing cervical lordotic curvature. There is slightly increased thoracic kyphosis, some minor flattening of the lumbar lordotic curvature. Lumbar paraspinous muscles show symmetrical on inspection, on palpation shows some moderate tenderness diffusely throughout the upper, middle and lower distribution of the paraspinous muscles bilaterally and also into the lower thoracic paraspinous musculature, firm and tender, but without specific trigger points, without radiation of pain. The patient has good rotational motion of the lumbar spine, both laterally as well as extension and flexion without significant difficulty. No tenderness over the spinous processes, sacrum or sacroiliac regions. EXTREMITIES: Lower extremities show deep tendon reflexes 2+ in the patellar and tendo calcaneus tendons. Motor exam is 5 on a scale of 5 with right dorsiflexion, extension, quadriceps and hamstring flexion and 4/5 on the left. Peripheral pulses are 1+ posterior tibial. No peripheral edema is noted bilaterally. Lower extremities are warm and dry to touch, equal in color and appearance. Straight leg raise noted to be negative on the right, left side shows positive straight leg raise at about 40 degrees decreased with knee flexion. Gaenslen's and Stewart's maneuvers are negative bilaterally. The patient is able to stand, stand on her toes without significant difficulty or loss of balance walks with a slightly favoring gait with the left lower extremity and again has a cane with her using it in her right hand. SKIN: Shows warm and dry, good turgor. No edema. No sores, rashes or bruising throughout. IMPRESSION: Impression: 80-year-old female with approximate 2-month history low back and left lower extremity pain and radicular fashion. MRI scan lumbar spine as noted Hypertension Arthritis Plan: Options were discussed with the patient including conservative medical management is continued physical therapies and interventional techniques. Patient reports interventional techniques. We discussed a lumbar epidural steroid injections description as well as anatomical models described procedure. We will check with patient's supervisor electronic coils for clearance to hold her Plavix for 7 days prior to the proposed procedure. If deemed safe and appropriate will have her hold this and return for lumbar epidural steroid traction at that time. In the meantime, patient will continue with stretching strength exercises wal abigail daily and exercise as tolerated. PATRICK BOCANEGRA MD Jan 12, 2021 11:35
== END | disposition home or self-care (01) ==
LOC: PNCL 10:00
PROVIDERS: ATTEND Anesthesiology
DX: M54.5 Low back pain (principal); M79.605 Pain in left leg; I10 Essential (primary) hypertension; M19.90 Unspecified osteoarthritis, unspecified site; E11.9 Type 2 diabetes mellitus without complications; K21.9 Gastro-esophageal reflux disease without esophagitis; F32.9 Major depressive disorder, single episode, unspecified; Z86.73 Personal history of transient ischemic attack (TIA), and cerebral infarction without residual deficits; Z90.710 Acquired absence of both cervix and uterus; Z90.49 Acquired absence of other specified parts of digestive tract; Z98.890 Other specified postprocedural states; Z79.899 Other long term (current) drug therapy; Z79.82 Long term (current) use of aspirin; Z88.0 Allergy status to penicillin; Z88.2 Allergy status to sulfonamides; Z88.8 Allergy status to other drugs, medicaments and biological substances; Z80.3 Family history of malignant neoplasm of breast; Z82.49 Family history of ischemic heart disease and other diseases of the circulatory system
CPT/HCPCS: G0463

== ENCOUNTER → 2021-01-20 | Outpatient (CLI) | payer MEDICARE, BC ==
[~2021-01-20] MED LIST changes: +IOHEXOL 180 MG/ML 10 ML VIAL. ONE; +methylPREDNISolone ACETATE 40 MG/ML VIAL. ONE; +methylPREDNISolone ACETATE 80 MG/ML VIAL. ONE
--- NOTE | 2021-01-20 08:32 | PDOC ---
Progress Note - Pain Clinic Date of Service: DOS: DATE: 01/20/21 TIME: 08:28 Diagnosis: Dx: Lumbar radiculopathy with lumbar degenerative disc disease History or Present Illness: HPI: 80-year-old female returns to follow-up status post initial evaluation and clearance with her primary care physician to hold her Plavix for 1 week she has been off this for 1 week now returns with continued plaint of low back and left lower extremity pain. Patient reports pain in the low back rating the posterior gluteus posterior thigh posterior calf and foot on the left side. Patient reports is an 8 on scale 10 is worse over the past week 8 on average for its least is an 8 today. Patient reports no new motor or sensory deficit scribes pain is aching and radiating the low back and left leg as it was previously. Patient ports still wakes her from sleep at night least once or twice does not cause any new motor or sensory deficits no new bowel or bladder incontinence or other complaints. Physical Exam: VS: Blood pressure is 142/92 pulse 78 respirations 18 temperature 99.1 F 152 pounds PE: PHYSICAL EXAMINATION: GENERAL: The patient is awake, alert, oriented, appropriate, very pleasant demeanor HEENT: Shows normocephalic, atraumatic. Extraocular movements are intact and symmetrical. NECK: Shows anterior throat supple without palpable lymphadenopathy noted. Swa llow reflex symmetrical. CHEST: Shows normal on inspection. Breath sounds are clear bilaterally. HEART: Shows S1, S2 clear. No murmurs auscultated. ABDOMEN: Soft, nontender, nondistended, obese. No palpable organomegaly is noted. BACK: Shows spine grossly in the midline. Normal-appearing cervical lordotic curvature. There is increased thoracic kyphosis, some flattening of the lumbar lordotic curvature. Lumbar paraspinous muscles show symmetrical on inspection, on palpation shows some moderate tenderness diffusely throughout the upper, middle and lower distribution of the paraspinous muscles without specific trigger points, without radiation of pain. The patient has good rotational motion of the lumbar spine, both laterally as well as extension and flexion without significant difficulty. EXTREMITIES: Lower extremities show deep tendon reflexes 2+ in the patellar and tendo calcaneus tendons. Motor exam is 5 on a scale of 5 with right dorsiflexion, extension, quadriceps and hamstring flexion and 4/5 on the left. Peripheral pulses are 1+ posterior tibial. No peripheral edema is noted bilaterally. Lower extremities are warm and dry to touch, equal in color and appearance. SKIN: Shows warm and dry, good turgor. No edema. No sores, rashes or bruising throughout. Procedure: Procedure: Options were discussed with the patient. Patient chart reviews her current medication regimen updated current review of systems updated today as well. We will proceed with a lumbar epidural steroid injection today with fluoroscopic guidance. Risks were discussed including but not limited to: Bleeding, infection, possibility of epidural hematoma and subsequent neurological compromise, dural puncture, headaches, spinal cord and/or nerve damage, side effects of steroid medication, and poor results regarding pain control. Patient understands and wished to proceed. Patient will return to clinic in approximate 2 weeks for follow-up was counseled as to return appointment activity level and side effects be aware. She will restart Plavix tomorrow January 21, 2021. Medication Injected: Med Injected: Procedure is lumbar epidural steroid injection under local anesthetic using sterile prep and drape at the L5-S1 level using C-arm fluoroscopic guidance in both AP and lateral views medications injected is 120 mg Depo-Medrol + 10 mL preservative-free normal saline and 2 mL contrast- condition at discharge is stable patient tolerated procedure well had no complications. Condition at Discharge: Condition at Discharge: Condition at discharge is stable, patient already procedure well and had no complications. PATRICK BOCANEGRA MD Jan 20, 2021 08:32
--- NOTE | 2021-01-20 08:32 | PDOC4 ---
PROCEDURE Procedure Patient is consented for lumbar epidural steroid injection. Risks were disc ussed including but not limited to: Bleeding, infection, possibility of epidural hematoma and subsequent neurological compromise, dural puncture, headaches, spinal cord and/or nerve damage, side effects of steroid medication, and poor results regarding pain control. Patient understands and wished to proceed. Procedure is lumbar epidural steroid injection under local anesthetic using sterile prep and drape at the L5-S1 level using C-arm fluoroscopic guidance in both AP and lateral views medications injected is 120 mg Depo-Medrol + 10 mL preservative-free normal saline and 2 mL contrast- condition at discharge is stable patient tolerated procedure well had no complications. PATRICK BOCANEGRA MD Jan 20, 2021 08:32
== END | disposition home or self-care (01) ==
LOC: PNCL 07:55
PROVIDERS: ATTEND Anesthesiology
DX: M51.16 Intervertebral disc disorders with radiculopathy, lumbar region (principal); K21.9 Gastro-esophageal reflux disease without esophagitis; E11.9 Type 2 diabetes mellitus without complications; F32.9 Major depressive disorder, single episode, unspecified; Z90.710 Acquired absence of both cervix and uterus; Z98.890 Other specified postprocedural states; Z79.899 Other long term (current) drug therapy; Z90.49 Acquired absence of other specified parts of digestive tract; Z79.82 Long term (current) use of aspirin; Z79.84 Long term (current) use of oral hypoglycemic drugs; Z88.0 Allergy status to penicillin; Z88.2 Allergy status to sulfonamides; Z88.8 Allergy status to other drugs, medicaments and biological substances; Z72.89 Other problems related to lifestyle
CPT/HCPCS: 62323; J1030; J1040; Q9965

== ENCOUNTER → 2021-02-17 | Outpatient (CLI) | payer MEDICARE, BC ==
--- NOTE | 2021-02-17 08:36 | PDOC ---
Progress Note - Pain Clinic Date of Service: DOS: DATE: 02/17/21 TIME: 08:33 Diagnosis: Dx: Lumbar radiculopathy with lumbar degenerative disc disease History or Present Illness: HPI: 80-year-old female returns for follow-up status post lumbar epidural steroid traction x1. Patient reports by 97% improvement in the pain after about 2 weeks after last injection. Patient reports pain returning now in the low back and left lower extremity fairly significantly about back to baseline where is difficult for her to walk extended distances and is using a cane again in her right hand. Patient reports pain is a 10 on scale 10 is worse over the past week 10 on average 8 its least is a 10 today patient was aching and sharp shooting stabbing and constant in the low back rating left lower extremity posterior gluteus posterior thigh posterior calf to the ankle on the left side as well no pain on the right. Patient reports no new motor or sensory deficits no new bowel or bladder incontinence is waking her from sleep over the past week or so prior to that was not since she was increasing her activity with distance walking doing household activities travel with greater ease and comfort sleeping better but now the pain is returned. Patient reports no complaints. Physical Exam: VS: Blood pressure is 120/79 pulse 69 respirations 18 temperature 98.7 F weight 155 pounds. PE: PHYSICAL EXAMINATION: GENERAL: The patient is awake, alert, oriented, appropriate, very pleasant demeanor HEENT: Shows normocephalic, atraumatic. Extraocular movements are intact and symmetrical. Oral cavity: Mucous membranes moist and pink. NECK: Shows anterior throat supple without palpable lymphadenopathy noted. Swallow reflex symmetrical. CHEST: Shows normal on inspection. Breath sounds are clear bilaterally. HEART: Shows S1, S2 clear. No murmurs auscultated. ABDOMEN: Soft, nontender, nondistended, obese. No palpable organomegaly is noted. BACK: Shows spine grossly in the midline. Normal-appearing cervical lordotic curvature. There is slightly increased thoracic kyphosis, some minor flattening of the lumbar lordotic curvature. Lumbar paraspinous muscles show symmetrical on inspection, on palpation shows some moderate tenderness diffusely throughout the upper, middle and lower distribution of the paraspinous muscles without specific trigger points, without radiation of pain. The patient has good rotational motion of the lumbar spine, both laterally as well as extension and flexion without significant difficulty. EXTREMITIES: Lower extremities show deep tendon reflexes 2+ in the patellar and tendo calcaneus tendons. Motor exam is 5 on a scale of 5 with right dorsiflexion, extension, quadriceps and hamstring flexion and 4/5 on the left. Peripheral pulses are 1 posterior tibial. No peripheral edema is noted bilaterally. Lower extremities are warm and dry to touch, equal in color and appearance. SKIN: Shows warm and dry, good turgor. No edema. No sores, rashes or bruising throughout. Procedure: Procedure: Options discussed with the patient. Patient chart reviews her current medication regimen updated current review of systems updated today as well. We will proceed with a second in the series lumbar epidural steroid injection today with fluoroscopic guidance. Risks were discussed including but not limited to: Bleeding, infection, possibility of epidural hematoma and subsequent neurological compromise, dural puncture, headaches, spinal cord and/or nerve damage, side effects of steroid medication, and poor results regarding pain control. Patient understands and wished to proceed. Patient return to the clinic in approximate 2 weeks for follow-up, was counseled as return appointment, activity level, and side effects to be aware of. Medication Injected: Med Injected: Procedure is lumbar epidural steroid injection under local anesthetic using sterile prep and drape at the L5-S1 level using C-arm fluoroscopic guidance in both AP and lateral views medications injected is 100 mg Depo-Medrol + 10 mL preservative-free normal saline and 2 mL contrast- condition at discharge is stable patient tolerated procedure well had no complications. Condition at Discharge: Condition at Discharge: Condition at discharge stable, patient alert procedure well and had no complications. PATRICK BOCANEGRA MD Feb 17, 2021 08:36
--- NOTE | 2021-02-17 08:37 | PDOC4 ---
PROCEDURE Procedure Patient was consented for lumbar epidural steroid injection. Risks were dis cussed including but not limited to: Bleeding, infection, possibility of epidural hematoma and subsequent neurological compromise, dural puncture, headaches, spinal cord and/or nerve damage, side effects of steroid medication, and poor results regarding pain control. Patient understands and wished to proceed. Procedure is lumbar epidural steroid injection under local anesthetic using sterile prep and drape at the L5-S1 level using C-arm fluoroscopic guidance in both AP and lateral views medications injected is 120 mg Depo-Medrol + 10 mL preservative-free normal saline and 2 mL contrast- condition at discharge is stable patient tolerated procedure well had no complications. PATRICK BOCANEGRA MD Feb 17, 2021 08:37
== END | disposition home or self-care (01) ==
LOC: PNCL 07:53
PROVIDERS: ATTEND Anesthesiology
DX: M51.16 Intervertebral disc disorders with radiculopathy, lumbar region (principal); I10 Essential (primary) hypertension; K21.9 Gastro-esophageal reflux disease without esophagitis; E11.9 Type 2 diabetes mellitus without complications; M19.90 Unspecified osteoarthritis, unspecified site; F32.9 Major depressive disorder, single episode, unspecified; Z90.49 Acquired absence of other specified parts of digestive tract; Z98.890 Other specified postprocedural states; Z90.710 Acquired absence of both cervix and uterus; Z79.82 Long term (current) use of aspirin; Z79.899 Other long term (current) drug therapy; Z88.0 Allergy status to penicillin; Z88.1 Allergy status to other antibiotic agents; Z88.8 Allergy status to other drugs, medicaments and biological substances; Z72.89 Other problems related to lifestyle
CPT/HCPCS: 62323; J1030; J1040; Q9965; 77002

== ENCOUNTER → 2021-03-09 | Outpatient (CLI) | payer MEDICARE, BC ==
[~2021-03-09] MED LIST changes: +TRAM50TA PO
--- NOTE | 2021-03-09 09:48 | PDOC ---
Progress Note - Pain Clinic Date of Service: DOS: DATE: 03/09/21 TIME: 09:46 Diagnosis: Dx: Lumbar radiculopathy with lumbar degenerative disc disease History or Present Illness: HPI: 80-year-old female returns for follow-up status post lumbar contracture injection x2. Patient reports about 85% improvement initially but now only about 50% improvement in the low back left lower extremity still painful patient reports is worse with walking standing changing positions initially she was in much better with distance walking doing household activities travel with greater ease and comfort but the pain returned fairly significantly after the second injection patient reports in the low back posterior gluteus posterior thigh posterior calf on the left side into the left ankle and foot patient describes it as aching and sharp shooting at times in the leg stabbing can be radiating constant as well with walking standing better with sitting or laying down generally is not awaken her from sleep at night but did last night 2-3 times patient reports is a 10 on scale 10 is worse over the past week 8 on average 8 its least is 8 today. Patient reports no new motor or sensory deficits no new bowel or bladder incontinence or other complaints. Physical Exam: VS: Blood pressure is 131/84 pulse 80 respirations 18 temperature 98.9 F weight is 155 pounds PE: PHYSICAL EXAMINATION: GENERAL: The patient is awake, alert, oriented, appropriate, very pleasant demeanor HEENT: Shows normocephalic, atraumatic. Extraocular movements are intact and symmetrical. Oral cavity: Mucous membranes moist and pink. NECK: Shows anterior throat supple without palpable lymphadenopathy noted. Swallow reflex symmetrical. CHEST: Shows normal on inspection. Breath sounds are clear bilaterally. HEART: Shows S1, S2 clear. No murmurs auscultated. ABDOMEN: Soft, nontender, nondistended. No palpable organomegaly is noted. No rebound or guarding demonstrated. BACK: Shows spine grossly in the midline. Normal-appearing cervical lordotic curvature. Full range of motion cervical spine both laterally as well as extension and flexion without difficulty. There is slightly increased thoracic kyphosis, some minor flattening of the lumbar lordotic curvature. Lumbar paraspinous muscles show symmetrical on inspection, on palpation shows some moderate tenderness diffusely throughout the upper, middle and lower distribution of the paraspinous muscles, but without specific trigger points, without radiation of pain. The patient has good rotational motion of the lumbar spine, both laterally as well as extension and flexion without significant difficulty. EXTREMITIES: Lower extremities show deep tendon reflexes 2 in the patellar and tendo calcaneus tendons. Motor exam is 5 on a scale of 5 with right dorsiflexion, extension, quadriceps and hamstring flexion and 4/5 on the left. Peripheral pulses are 1+ posterior tibial. No peripheral edema is noted bilaterally. Lower extremities are warm and dry. SKIN: Shows warm and dry, good turgor. No edema. No sores, rashes or bruising throughout. Procedure: Procedure: Options were discussed with the patient. Patient will chart reviews her current medication regimen updated current review of systems updated today as well. We will proceed with a third in the series lumbar epidural to injection stable fluoroscopic guidance. Risks were discussed including but not limited to: Bleeding, infection, possibility of epidural hematoma and subsequent neurological compromise, dural puncture, headaches, spinal cord and/or nerve damage, side effects of steroid medication, and poor results regarding pain cont rol. Patient understands and wished to proceed. Patient will return to clinic in approximate 2 weeks for follow-up, was counseled as return appointment activity level and side effects beware. We will also order physical therapy with traction for the lumbar spine and patient was given refill for tramadol 50 mg with instructions and side effects were discussed also. Medication Injected: Med Injected: Procedure is lumbar epidural steroid injection under local anesthetic using sterile prep and drape at the L5-S1 level using C-arm fluoroscopic guidance in both AP and lateral views medications injected is 120 mg Depo-Medrol + 10 mL preservative-free normal saline and 2 mL contrast- condition at discharge is stable patient tolerated procedure well had no complications. Condition at Discharge: Condition at Discharge: Condition at discharge is stable, patient tolerated procedure well and had no complications. PATRICK BOCANEGRA MD Mar 09, 2021 09:48
--- NOTE | 2021-03-09 09:49 | PDOC4 ---
PROCEDURE Procedure Patient is consented for lumbar epidural steroid injection. Risks were discussed including but not limited to: Bleeding, infection, possibility of epidural hematoma and subsequent neurological compromise, dural puncture, headaches, spinal cord and/or nerve damage, side effects of steroid medication, and poor results regarding pain control. Patient understands and wished to proceed. Procedure is lumbar epidural steroid injection under local anesthetic using sterile prep and drape at the L5-S1 level using C-arm fluoroscopic guidance in both AP and lateral views medications injected is 120 mg Depo-Medrol + 10 mL preservative-free normal saline and 2 mL contrast- condition at discharge is stable patient tolerated procedure well had no complications. PATRICK BOCANEGRA MD Mar 09, 2021 09:49
== END | disposition home or self-care (01) ==
LOC: PNCL 08:52
PROVIDERS: ATTEND Anesthesiology
DX: M51.16 Intervertebral disc disorders with radiculopathy, lumbar region (principal); K21.9 Gastro-esophageal reflux disease without esophagitis; I10 Essential (primary) hypertension; E11.9 Type 2 diabetes mellitus without complications; M19.90 Unspecified osteoarthritis, unspecified site; F32.9 Major depressive disorder, single episode, unspecified; Z90.710 Acquired absence of both cervix and uterus; Z90.49 Acquired absence of other specified parts of digestive tract; Z98.890 Other specified postprocedural states; Z79.82 Long term (current) use of aspirin; Z79.899 Other long term (current) drug therapy; Z88.0 Allergy status to penicillin; Z88.2 Allergy status to sulfonamides; Z88.8 Allergy status to other drugs, medicaments and biological substances; Z72.89 Other problems related to lifestyle
CPT/HCPCS: 62323; J1030; J1040; Q9965